=== PATIENT | female | born 1975 | race African-American/Black ===

== ENCOUNTER 2020-08-13 23:26 | Inpatient (IN) | payer MEDICARE ==
[~2020-08-13] VITALS: Ht 172.7 cm; Wt 113.4 kg
[2020-08-14] VITALS (11 sets, daily range): BP systolic 144–165; BP diastolic 92–113
[2020-08-14] MEDS ORDERED: DEXTROSE 50% SYRINGE 50 ML IV PRN (02:15)
[2020-08-14] MEDS ORDERED: METFORMIN HCL500 MG PO (04:00)
[2020-08-14] MEDS ORDERED: FEROSUL325 MG PO (04:00)
[2020-08-14] MEDS ORDERED: LEVEMIR FL100 UNIT/1 SC (04:00)
[2020-08-14] MEDS ORDERED: LISINOPRIL10 MG PO (04:00)
[2020-08-14 06:02] LABS: BLOOD UREA NITROGEN 13 mg/dL (7-26); BUN/CREATININE RATIO 17 (6-25); CARBON DIOXIDE 29 mmol/L (22-29); CHLORIDE 98 mmol/L (98-107); CREATININE, SERUM 0.77 mg/dL (0.57-1.11); EST GLOMERULAR FILTRATION RATE > 60 ML/MIN (60-); GLUCOSE 356 mg/dL (74-118); SODIUM 138 mmol/L (136-145)
[2020-08-14 06:52] LABS: HEMATOCRIT 43.5 % (34.2-44.1); HEMOGLOBIN 13.7 g/dL (12.0-16.0); MEAN CORPUSCULAR HEMOGLOBIN 27.8 pg (28-32); MEAN CORPUSCULAR HGB CONC 31.5 g/dL (31-35); MEAN CORPUSCULAR VOLUME 88.4 fL (81-99); PLATELET COUNT 184 x10e3/uL (140-360); RED BLOOD COUNT 4.92 x10e6/uL (3.6-5.1); RED CELL DISTRIBUTION WIDTH 14.2 % (11.7-14.4)
[2020-08-14 08:24] LABS: BAND NEUTROPHILS % (MANUAL) 2 %; LYMPHOCYTES % (MANUAL) 3 % (19-48); METAMYELOCYTES % (MANUAL) 2 % (0-0); MONOCYTES % (MANUAL) 2 % (3.4-9.0); NEUTROPHILS % (MANUAL) 91 % (40-74); PLATELET ESTIMATE ADEQUATE; PLATELET MORPHOLOGY COMMENT FEW LARGE; RBC MORPHOLOGY COMMENT NORMAL
[2020-08-14] MEDS ORDERED: ONDANSETRON HCL INJ 2MG/ML 2ML 2 MG/ML VIAL IV PRN (09:45)
[2020-08-14] MEDS: ACETAMINOPHEN 325 MG TAB PO PRN ×2 (09:49→15:11)
[2020-08-14] MEDS: INSULIN LISPRO 100 UNIT/1 ML 3ML VIAL SQ SCH ×4 (09:55→21:00)
[2020-08-14] MEDS ORDERED: MAGNESIUM OXID400 MG PO (10:32)
[2020-08-14] MEDS ORDERED: PROAIR HFA INH8.5 GM IH (10:32)
[2020-08-14] MEDS ORDERED: SIMVASTATIN20 MG PO (10:32)
[2020-08-14] MEDS ORDERED: ZESTRIL20 MG PO (10:32)
[2020-08-14] MEDS ORDERED: AMLODIPINE BESYL5 MG PO (10:32)
[2020-08-14] MEDS ORDERED: LASIX20 MG PO (10:32)
[2020-08-14] MEDS ORDERED: ADVAIR 250-501 EACH INH (10:32)
[2020-08-14] MEDS ORDERED: DOCUSATE SODIUM 100 MG CAP PO PRN (11:15)
[2020-08-14] MEDS ORDERED: CEFTRIAXONE 2 GM/DEXT 100 ML 2 GM/100 ML ML IV SCH (11:15)
[2020-08-14] MEDS ORDERED: GUAIFENESIN/DEXTROMETHORPHAN LIQD 5 ML UDC NG PRN (11:15)
[2020-08-14] MEDS ORDERED: NON-FORMULARY MEDICATION (Insulin Detemir (Levemir Flextouch) 10 UNITS) SC SCH (11:15)
[2020-08-14 11:34] LABS: CHOL/HDL RATIO 2.4 (3.0-3.6)
[2020-08-14] MEDS: AZITHROMYCIN 500MG/NS 250 ML 250 ML IV SCH (12:31)
[2020-08-14] MEDS ORDERED: SODIUM CHLORIDE 0.9% 250ML 250 ML ONE (12:40)
[2020-08-14] MEDS: INSULIN GLARGINE 100 UNITS/ML VIAL SQ SCH ×2 (12:42→22:04)
[2020-08-14] MEDS: CEFTRIAXONE 1 GM in SODIUM CHLORIDE 0.9% 50ML 50 ML IV SCH (12:42)
[2020-08-14] MEDS: METHYLPREDNISOLONE SOD SUCC 40 MG/ML VIAL 1ML IV SCH ×2 (15:11→21:40)
[2020-08-14] MEDS: CHOLESTYRAMINE 4 GM PACKET PO SCH ×2 (15:11→22:00)
[2020-08-14] MEDS: BENZONATATE 100 MG CAP PO SCH ×2 (15:11→21:40)
[2020-08-14] MEDS: BACITRACIN ZINC 15 GM OINT TOP SCH ×2 (15:24→21:00)
[2020-08-14] MEDS: ENOXAPARIN SOD INJ 40 MG/0.4 ML SYR SC SCH (16:34)
[2020-08-14] MEDS: FAMOTIDINE 20 MG TAB PO SCH (16:34)
[2020-08-14] MEDS: NIFEDIPINE CR 30 MG TAB PO SCH (19:19)
[2020-08-14] MEDS ORDERED: TEMAZEPAM 15 MG CAP PO PRN (21:00)
[2020-08-14] MEDS ORDERED: ZOLPIDEM TARTRATE 5 MG TAB PO PRN (21:00)
[2020-08-14] MEDS: SIMVASTATIN 20 MG TAB PO SCH (21:40)
[2020-08-14] MEDS: ALBUTEROL/IPRATROPIUM 3 ML NEB NEB PRN (22:10)
[2020-08-15] VITALS (7 sets, daily range): BP systolic 127–150; BP diastolic 82–104
[2020-08-15 04:54] LABS: BASOPHILS % 0.1 % (0.0-1.0); HEMATOCRIT 41.9 % (34.2-44.1); HEMOGLOBIN 12.6 g/dL (12.0-16.0); LYMPHOCYTES # (AUTO) 0.6 (1.0-3.2); LYMPHOCYTES % 6.7 % (18.0-39.1); MEAN CORPUSCULAR HEMOGLOBIN 26.3 pg (28-32); MEAN CORPUSCULAR HGB CONC 30.1 g/dL (31-35); MEAN CORPUSCULAR VOLUME 87.5 fL (81-99); MONOCYTES # (AUTO) 0.4 (0.2-0.8); MONOCYTES % 5.1 % (4.4-11.3); NEUTROPHILS # (AUTO) 7.5 (2.1-6.9); NEUTROPHILS % 87.1 % (38.7-80.0); PLATELET COUNT 259 x10e3/uL (140-360); RED BLOOD COUNT 4.79 x10e6/uL (3.6-5.1); RED CELL DISTRIBUTION WIDTH 13.3 % (11.7-14.4)
[2020-08-15 05:14] LABS: BLOOD UREA NITROGEN 14 mg/dL (7-26); BUN/CREATININE RATIO 17 (6-25); CALCIUM 9.1 mg/dL (8.4-10.2); CARBON DIOXIDE 31 mmol/L (22-29); CHLORIDE 98 mmol/L (98-107); CREATININE, SERUM 0.82 mg/dL (0.57-1.11); EST GLOMERULAR FILTRATION RATE > 60 ML/MIN (60-); GLUCOSE 373 mg/dL (74-118); MAGNESIUM 1.9 MG/DL (1.3-2.1); PHOSPHORUS 3.1 MG/DL (2.3-4.7); SODIUM 138 mmol/L (136-145)
[2020-08-15] MEDS: HYDRALAZINE HCL 20 MG/ML VIAL IV PRN ×3 (05:41→22:15)
[2020-08-15] MEDS ORDERED: BACITRACIN ZINC 15 GM OINT TOP SCH (09:00)
[2020-08-15] MEDS ORDERED: AMLODIPINE BESYLATE 5 MG TAB PO SCH (09:00)
[2020-08-15] MEDS: FAMOTIDINE 20 MG TAB PO SCH ×2 (09:06→16:41)
[2020-08-15] MEDS: NIFEDIPINE CR 30 MG TAB PO SCH ×2 (09:07→21:06)
[2020-08-15] MEDS: BENZONATATE 100 MG CAP PO SCH ×3 (09:08→21:06)
[2020-08-15] MEDS: METHYLPREDNISOLONE SOD SUCC 40 MG/ML VIAL 1ML IV SCH ×2 (09:08→21:06)
[2020-08-15] MEDS: CEFTRIAXONE 1 GM in SODIUM CHLORIDE 0.9% 50ML 50 ML IV SCH (09:08)
[2020-08-15] MEDS: BACITRACIN ZINC 15 GM OINT TOP SCH ×2 (09:08→21:06)
[2020-08-15] MEDS: CHOLESTYRAMINE 4 GM PACKET PO SCH ×3 (09:09→21:59)
[2020-08-15] MEDS: INSULIN LISPRO 100 UNIT/1 ML 3ML VIAL SQ SCH ×4 (09:18→21:00)
[2020-08-15] MEDS: INSULIN GLARGINE 100 UNITS/ML VIAL SQ SCH ×2 (09:18→21:00)
[2020-08-15] MEDS: ACETAMIN/BUTALBITAL/CAFFEINE TAB PO PRN ×2 (10:05→21:06)
[2020-08-15] MEDS: AZITHROMYCIN 500MG/NS 250 ML 250 ML IV SCH (12:03)
[2020-08-15] MEDS: ENOXAPARIN SOD INJ 40 MG/0.4 ML SYR SC SCH (16:41)
[2020-08-15] MEDS: SIMVASTATIN 20 MG TAB PO SCH (21:06)
[2020-08-15] MEDS: ALBUTEROL/IPRATROPIUM 3 ML NEB NEB PRN (21:28)
[2020-08-16] VITALS (8 sets, daily range): BP systolic 135–153; BP diastolic 82–92
[2020-08-16] MEDS ORDERED: MUCINEX DM ER1 EACH PO (06:36)
[2020-08-16] MEDS ORDERED: PREDNISONE20 MG PO (06:36)
[2020-08-16] MEDS ORDERED: LORATADINE10 MG PO (06:36)
[2020-08-16] MEDS ORDERED: ZITHROMAX500 MG PO (06:36)
[2020-08-16] MEDS ORDERED: TESSALON PERLE100 MG PO (06:36)
[2020-08-16] MEDS ORDERED: KEFLEX125 MG/5 M PO (06:36)
[2020-08-16] MEDS: ALBUTEROL/IPRATROPIUM 3 ML NEB NEB PRN (07:20)
[2020-08-16] MEDS: ACETAMIN/BUTALBITAL/CAFFEINE TAB PO PRN (07:20)
[2020-08-16] MEDS: CHOLESTYRAMINE 4 GM PACKET PO SCH ×3 (08:09→21:10)
[2020-08-16] MEDS: NIFEDIPINE CR 30 MG TAB PO SCH ×2 (08:17→17:38)
[2020-08-16] MEDS: CEFTRIAXONE 1 GM in SODIUM CHLORIDE 0.9% 50ML 50 ML IV SCH (08:17)
[2020-08-16] MEDS: METHYLPREDNISOLONE SOD SUCC 40 MG/ML VIAL 1ML IV SCH ×2 (08:18→20:54)
[2020-08-16] MEDS: FERROUS SULFATE 325 MG TAB PO SCH (08:18)
[2020-08-16] MEDS: BENZONATATE 100 MG CAP PO SCH ×3 (08:18→20:54)
[2020-08-16] MEDS: FAMOTIDINE 20 MG TAB PO SCH ×2 (08:18→17:30)
[2020-08-16] MEDS: INSULIN LISPRO 100 UNIT/1 ML 3ML VIAL SQ SCH ×4 (08:24→21:10)
[2020-08-16] MEDS: INSULIN GLARGINE 100 UNITS/ML VIAL SQ SCH ×2 (08:25→21:09)
[2020-08-16] MEDS: BACITRACIN ZINC 15 GM OINT TOP SCH ×2 (09:00→20:54)
[2020-08-16] MEDS ORDERED: ONDANSETRON HCL 4 MG ORAL DISINTEGRATING TAB PO PRN (10:00)
[2020-08-16] MEDS ORDERED: SODIUM CHLORIDE 0.9% 50ML 50 ML ONE (12:10)
[2020-08-16] MEDS ORDERED: IOPAMIDOL 370 MG/ML 200 ML INFUS..BTL INJ ONE (12:11)
[2020-08-16] MEDS: AZITHROMYCIN 500MG/NS 250 ML 250 ML IV SCH (15:10)
[2020-08-16] MEDS: ENOXAPARIN SOD INJ 40 MG/0.4 ML SYR SC SCH ×2 (17:30→18:20)
[2020-08-16] MEDS: SIMVASTATIN 20 MG TAB PO SCH (20:54)
[2020-08-17 00:43] VITALS: BP 142/87
[2020-08-17 04:51] VITALS: BP 126/84
[2020-08-17 04:56] LABS: BASOPHILS % 0.3 % (0.0-1.0); HEMATOCRIT 47.1 % (34.2-44.1); HEMOGLOBIN 14.5 g/dL (12.0-16.0); LYMPHOCYTES # (AUTO) 0.8 (1.0-3.2); LYMPHOCYTES % 12.2 % (18.0-39.1); MEAN CORPUSCULAR HEMOGLOBIN 26.6 pg (28-32); MEAN CORPUSCULAR HGB CONC 30.8 g/dL (31-35); MEAN CORPUSCULAR VOLUME 86.4 fL (81-99); MONOCYTES # (AUTO) 0.3 (0.2-0.8); NEUTROPHILS # (AUTO) 5.5 (2.1-6.9); NEUTROPHILS % 82.3 % (38.7-80.0); PLATELET COUNT 273 x10e3/uL (140-360); RED BLOOD COUNT 5.45 x10e6/uL (3.6-5.1); RED CELL DISTRIBUTION WIDTH 13.2 % (11.7-14.4)
[2020-08-17 05:16] LABS: ALANINE AMINOTRANSFERASE 24 IU/L (0-55); ALBUMIN 3.6 g/dL (3.5-5.0); ALBUMIN/GLOBULIN RATIO 1.2 (0.8-2.0); ALKALINE PHOSPHATASE 71 IU/L (40-150); ANION GAP 15.7 mmol/L (8-16); BLOOD UREA NITROGEN 18 mg/dL (7-26); BUN/CREATININE RATIO 20 (6-25); CALCIUM 9.6 mg/dL (8.4-10.2); CARBON DIOXIDE 34 mmol/L (22-29); CHLORIDE 91 mmol/L (98-107); CREATININE, SERUM 0.89 mg/dL (0.57-1.11); EST GLOMERULAR FILTRATION RATE > 60 ML/MIN (60-); GLUCOSE 370 mg/dL (74-118); POTASSIUM 5.7 mmol/L (3.5-5.1); SODIUM 135 mmol/L (136-145)
[2020-08-17 08:09] VITALS: BP 131/77
[2020-08-17] MEDS: FERROUS SULFATE 325 MG TAB PO SCH (08:40)
[2020-08-17] MEDS: METHYLPREDNISOLONE SOD SUCC 40 MG/ML VIAL 1ML IV SCH (08:40)
[2020-08-17] MEDS: CEFTRIAXONE 1 GM in SODIUM CHLORIDE 0.9% 50ML 50 ML IV SCH (08:40)
[2020-08-17] MEDS: BENZONATATE 100 MG CAP PO SCH (08:41)
[2020-08-17] MEDS: INSULIN GLARGINE 100 UNITS/ML VIAL SQ SCH (08:41)
[2020-08-17] MEDS: INSULIN LISPRO 100 UNIT/1 ML 3ML VIAL SQ SCH ×2 (08:41→12:24)
[2020-08-17] MEDS: FAMOTIDINE 20 MG TAB PO SCH (08:41)
[2020-08-17] MEDS: NIFEDIPINE CR 30 MG TAB PO SCH (08:42)
[2020-08-17 08:47] VITALS: BP 131/77
[2020-08-17] MEDS: BACITRACIN ZINC 15 GM OINT TOP SCH (09:00)
[2020-08-17] MEDS: CHOLESTYRAMINE 4 GM PACKET PO SCH ×2 (10:00→15:00)
[2020-08-17 13:02] VITALS: BP 151/98
[2020-08-17] MEDS: AZITHROMYCIN 500MG/NS 250 ML 250 ML IV SCH (14:00)
== END 2020-08-17 17:36 | disposition home or self-care (01) | DRG 196 ==
LOC: MED/SURG2 08-14 01:22
PROVIDERS: ADMIT Internal Medicine; ATTEND Internal Medicine
DX: D86.0 Sarcoidosis of lung (principal); J96.21 Acute and chronic respiratory failure with hypoxia; J18.9 Pneumonia, unspecified organism; E11.65 Type 2 diabetes mellitus with hyperglycemia; I51.7 Cardiomegaly; Z87.891 Personal history of nicotine dependence; K52.9 Noninfective gastroenteritis and colitis, unspecified; E66.9 Obesity, unspecified; Z68.38 Body mass index [BMI] 38.0-38.9, adult; G47.33 Obstructive sleep apnea (adult) (pediatric); G47.00 Insomnia, unspecified; N61.1 Abscess of the breast and nipple; L02.32 Furuncle of buttock; I10 Essential (primary) hypertension; E78.5 Hyperlipidemia, unspecified; Z82.49 Family history of ischemic heart disease and other diseases of the circulatory system; Z80.1 Family history of malignant neoplasm of trachea, bronchus and lung; Z80.6 Family history of leukemia; R51.9 Headache, unspecified; M06.9 Rheumatoid arthritis, unspecified; Z20.822 Contact with and (suspected) exposure to COVID-19; Z79.4 Long term (current) use of insulin
CPT/HCPCS: 36415; 71045; 71260; 80048; 80053; 80061; 82948; 83036; 83735; 84100; 84132; 84702; 85007; 85025; 85027; 93306; 94640; 99251; J0360; J0456; J0696; J1650; J1815; J2920; J7050; Q9967; U0002